=== PATIENT | female | born 1955 | race Caucasian/White ===

== ENCOUNTER 2018-11-15 18:33 | Emergency (ER) | payer OTHER ==
[~2018-11-15] VITALS: Ht 160 cm; Wt 63.5 kg
== END 2018-11-15 22:22 | disposition home or self-care (01) ==
LOC: ER 18:33
DX: H60.8X3 Other otitis externa, bilateral (principal)

== ENCOUNTER → 2018-11-15 | Emergency (ER) | payer OTHER | END | disposition left against medical advice (07) | LOC: ER 15:45 | DX: Z53.20 Procedure and treatment not carried out because of patient's decision for unspecified reasons (principal) ==